=== PATIENT | male | born 1940 | race Caucasian/White ===

== ENCOUNTER 2020-05-08 07:16 | Outpatient (REF) | payer MEDICARE, SELFPAY ==
[2020-05-08 08:05] LABS: MANUAL DIFF FLAG NO
[2020-05-08 08:13] LABS: Basophils Absolute Auto 0.1 X10*3/uL (0.0-0.2); Eosinophils Absolute Auto 0.3 X10*3/uL (0.0-0.4); Eosinophils Percent Auto 3.4 % (0-4); Hemoglobin 18.3 g/dl (14.0-18.0); Imm Gran Abs Auto 0.03 X10*3/uL (0.00-0.03); Imm Gran Pct Auto 0.4 % (0.0-0.4); Lymphocytes Absolute Auto 0.9 X10*3/uL (1.2-4.9); Mean Corpuscular HGB Conc 33.2 g/dl (31.0-36.0); Mean Corpuscular Volume 96.7 fL (80-98); Mean Platelet Volume 10.5 fL (9.4-12.4); Monocytes Percent Auto 12.7 % (2-11); Neutrophils Absolute Auto 5.9 X10*3/uL (2.0-8.3); Neutrophils Percent Auto 71.5 % (45-73); Platelet Count 275 X10*3/uL (160-400); Red Blood Count 5.71 X10*6/uL (4.60-5.80); Red Cell Distribution Width 12.5 % (11.0-16.0); White Blood Count 8.2 X10*3/uL (4.8-10.8)
[2020-05-08 08:17] LABS: Hematocrit 55.2 % (42-52)
[2020-05-08 08:24] LABS: Glucose Urine UA NEG (NEG); Leukocyte Esterase Urine NEG (NEG); Nitrite Urine NEG (NEG); PH 7.5 (5.0-8.0); Urine Blood TRACE (NEG); Urine Ketones NEG (NEG); Urine Protein NEG (NEG-TRACE)
[2020-05-08 08:39] LABS: Estimated Average Glucose 123 mg/dL; Hemoglobin A1c % 5.9 %
[2020-05-08 08:46] LABS: Appearance Urine CLEAR; Color Urine YELLOW
[2020-05-08 08:48] LABS: RBC Urine 0-2 /HPF (0); Squamous Epithelial Cell Urine TRACE /LPF; WBC Urine 0 /HPF (0-4)
[2020-05-08 11:45] LABS: Alanine Aminotransferase 30 U/L (0-40); Albumin Level 4.6 g/dL (3.5-5.0); Alkaline Phosphatase 78 U/L (39-117); Anion Gap 17 (12-20); Aspartate Amino Transferase 30 U/L (5-37); Bilirubin Total 2.6 mg/dL (0.0-1.0); Blood Urea Nitrogen 16 mg/dL (9-16); Calcium 9.8 mg/dL (8.4-10.2); Carbon Dioxide 30 mmol/L (22-29); Chloride 99 mmol/L (96-108); Cholesterol 128 mg/dL; Estimated Glomerular Filt Rate > 60; Glucose Fasting 118 mg/dL (60-99); HDL Cholesterol 45 mg/dL; LDL Cholesterol Calculated 69 mg/dl; Potassium 4.1 mmol/l (3.3-5.1); Prostate Specific Antigen 8.73 ng/mL (<0.05-4.0); Sodium 142 mmol/L (135-145); Total Protein 7.6 g/dL (6.5-8.0); Triglycerides 73 mg/dL
== END 2020-05-08 07:17 | disposition home or self-care (01) ==
LOC: HO.LAB 07:16
PROVIDERS: Visit Provider Internal Medicine Interventional Cardiology
DX: Z12.5 Encounter for screening for malignant neoplasm of prostate (principal); I10 Essential (primary) hypertension; D75.1 Secondary polycythemia; E11.9 Type 2 diabetes mellitus without complications; E78.00 Pure hypercholesterolemia, unspecified
CPT/HCPCS: 36415; 80053; 80061; 81001; 81003; 83036; 84153; 85025

== ENCOUNTER 2024-11-23 08:37 | Outpatient (AMB) | payer BC, MEDICAID, SELFPAY ==
--- NOTE | 2024-11-23 08:43 | MHC.PC.OV ---
Vital Signs 11/23/24 09:02 11/23/24 09:07 Height 5 ft 5 in Weight 142 lb BMI 23.6 BP 162/64 H 168/56 H Blood Pressure Location Lt brachial Lt brachial Position Sitting Sitting Respiration 14 Pulse 71 Pulse Source Pulse Oximeter Pulse Oximetry (%) 100 Oxygen Delivery Method Room Air Intake Visit Reasons: Est. Care / From Dr. Hubbard Intake Note: New patient visit. Allergies lactose Allergy (Unknown, Uncoded 11/23/24 08:50) loose stools Tobacco use date assessed: 11/23/24 Fall risk assessment: No Falls in past year Last assessed Fall Risk: 11/23/24 Dental Screening Dental Screen Date: 11/23/24 Did you have a dental visit in the last 12 months?: Yes Did you have a dental problem in the last 6 months where you did not have access to dental care?: No Was dental information given to patient?: Patient has dentist HPI HPI Comments History of Present Illness Details 84 year old male with a past medical history of CAD, STEMI x2 ABEBE to RCA 2023, htn, hld, prediabetes, gilberts, bph, presenting to establish care CAD: On coreg, brilinta, crestor, amlodipine, ASA. Follows with cardiology, Dr Willis. Will come off the brilinta soon. Prediabetes: HbA1C 6.3%. Urologic: Saw urology in the past for elevated PSA. Thinking about coming off finasteride. ROS CONSTITUTIONAL: Denies weight loss, fever and chills. HEENT: Denies changes in vision and hearing. RESPIRATORY: Denies SOB and cough. CV: Denies palpitations and CP GI: Denies abdominal pain, nausea, vomiting and diarrhea. : Denies dysuria and urinary frequency. MSK: Denies new myalgia and joint pain. SKIN: Denies rash and pruritus. NEUROLOGICAL: Denies headache PSYCHIATRIC: Denies recent changes in mood. PHYSICAL EXAM: GENERAL: Alert and oriented x 3. NAD EYES: EOMI. Anicteric. HENT: Moist mucous membranes. No scleral icterus. No cervical lymphadenopathy. LUNGS: Clear to auscultation bilaterally. CARDIOVASCULAR: Regular rate and rhythm. No murmur. No JVD. ABDOMEN: Soft, non-tender +bs EXTREMITIES: No edema. Non-tender. SKIN: No rashes or lesions. Warm. NEUROLOGIC: No focal neurological deficits. CN II-XII grossly intact PSYCHIATRIC: Cooperative. Appropriate mood and affect [facility] Surgical History H/O colonoscopy H/O hemorrhoidectomy H/O inguinal hernia repair Family History Mother Congestive heart failure Carotid artery disease Diabetes Brother Cancer of breast Sister Cancer of ovary Social History Housing: House (Lives home alone) Alcohol intake: current Patient Tobacco Use Status: Never used Tobacco e-Cigarette/Vaping Use: Never Used Second Hand Smoke Exposure: No service: Yes Current occupational status: retired Current occupational exposures/hazards: No Cognitive needs: No Hearing needs: Yes (some difficulty hearing) Vision needs: Yes (reading glasses) Questionnaire AUDIT C Alcohol Use Questionnaire (AUDIT-C) 1. How often do you have a drink containing alcohol?: Monthly or less 2. How many drinks containing alcohol do you have on a typical day when you are drinking?: 1 or 2 3. How often do you have six or more drinks on one occasion?: Never Total Score: 1 Physical exam (Primary Care) Vital Signs: Last Vital Signs Pulse 71 11/23/24 09:02 Resp 14 11/23/24 09:02 BP 168/56 H 11/23/24 09:07 Pulse Ox 100 11/23/24 09:02 Oxygen Delivery Method Room Air 11/23/24 09:02 BMI result Body Mass Index 23.6 Tobacco/Smoking Status: Tobacco use Status Tobacco use date assessed 11/23/24 11/23/24 08:57 Patient Tobacco Use Status Never used Tobacco 11/23/24 08:57 e-Cigarette/Vaping Use Never Used 11/23/24 08:57 Coding Level of Care Code New Pt Level 4 (91513) Complex EM visit Add On G2211 Diagnoses BPH with elevated PSA N40.0; R97.20 NSTEMI (non-ST elevated myocardial infarction) I21.4 Coronary artery disease involving [place] coronary artery without angina pectoris, unspecified whether [place] or transplanted heart I25.10 Coronary Disease-Associated Artery/Lesion type: [place] artery [place] vs. transplanted heart: unspecified whether [place] or transplanted heart Associated angina: without angina Assessment & Plan Assessment & Plan (1) BPH with elevated PSA: Code(s): N40.0 - Benign prostatic hyperplasia without lower urinary tract symptoms; R97.20 - Elevated prostate specific antigen [PSA] Category: Medical (2) NSTEMI (non-ST elevated myocardial infarction): Code(s): I21.4 - Non-ST elevation (NSTEMI) myocardial infarction Category: Medical (3) CAD (coronary artery disease): Code(s): I25.10 - Atherosclerotic heart disease of [place] coronary artery without angina pectoris Category: Medical Qualifiers: Coronary Disease-Associated Artery/Lesion type: [place] artery [place] vs. transplanted heart: unspecified whether [place] or transplanted heart Associated angina: without angina Qualified Code(s): I25.10 - Atherosclerotic heart disease of [place] coronary artery without angina pectoris Plan 84 year old to establish care Past medical, surgical, social & family history reviewed CAD-no angina. BP controlled Elevated psa-monitor Orders: Orders PSA,Total (Free>4and<10) Today I21.4 - Non-ST elevation (NSTEMI) myocardial infarction, I25.10 - Atherosclerotic heart disease of [place] coronary artery without angina pectoris, N40.0 - Benign prostatic hyperplasia without lower urinary tract symptoms, R97.20 - Elevated prostate specific antigen [PSA] Comprehensive Met. Panel Today I21.4 - Non-ST elevation (NSTEMI) myocardial infarction, I25.10 - Atherosclerotic heart disease of [place] coronary artery without angina pectoris, N40.0 - Benign prostatic hyperplasia without lower urinary tract symptoms, R97.20 - Elevated prostate specific antigen [PSA] Complete Blood Count Auto Diff Today I21.4 - Non-ST elevation (NSTEMI) myocardial infarction, I25.10 - Atherosclerotic heart disease of [place] coronary artery without angina pectoris, N40.0 - Benign prostatic hyperplasia without lower urinary tract symptoms, R97.20 - Elevated prostate specific antigen [PSA] Hemoglobin A1c Today I21.4 - Non-ST elevation (NSTEMI) myocardial infarction, I25.10 - Atherosclerotic heart disease of [place] coronary artery without angina pectoris, N40.0 - Benign prostatic hyperplasia without lower urinary tract symptoms, R97.20 - Elevated prostate specific antigen [PSA] Lipid Panel Today I21.4 - Non-ST elevation (NSTEMI) myocardial infarction, I25.10 - Atherosclerotic heart disease of [place] coronary artery without angina pectoris, N40.0 - Benign prostatic hyperplasia without lower urinary tract symptoms, R97.20 - Elevated prostate specific antigen [PSA]
--- OUTSIDE RECORDS SUMMARY | 2024-11-23 08:56 | XMS_ITS | Clinical Summary ---
Author Organization [employer] Address [address] [place] [address] Care Team Providers Care Reporting Coordinator Name Role Phone Unavailable Primary Care Provider Unavailabl e Allergies No known active allergies Medications simvastatin (Zocor) 20 MG tablet Take 20 mg by mouth in the morning. 04/19/2023 Active Multiple Vitamin (multivitamin) capsule Active hydroCHLOROthiaz juan (HYDRODiuril) 25 MG tablet Take 25 mg by mouth in the morning. 02/21/2023 Active amLODIPine (Norvasc) 5 MG tablet Take 5 mg by mouth in the morning. 03/18/2023 Active carvedilol (Coreg) 3.125 MG tablet Take 3.125 mg by mouth 2 times daily. 07/21/2023 Active simvastatin (Zocor) 10 MG tablet Take 1 tablet by mouth at bed time. Active aspirin 81 MG EC tablet Take 81 mg by mouth in the morning. Active rosuvastatin (Crestor) 20 MG tablet Take 20 mg by mouth Once per day. Active Brilinta 90 MG tablet Take 90 mg by mouth 2 times daily. Active finasteride (Proscar) 5 MG tablet Take 1 tablet by mouth Once per day. 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 [address] [place] [id number] Zelalem De BDS 09/16/2024 3:00 PM EST Office Visit [facility] [address] [place] [phone] Zelalem De BDS from Last 3 Months Social History Tobacco Use Types Packs/Day Years Used Date Smoking Tobacco: Unknown Tobacco Cessation:Counseling Given: Not Answered Alcohol Use Standard Drinks/Week Comments Never 0 (1 standard drink = 0.6 oz pur e alcohol) Sex and Gender Information Value Date Recorded Sex Assigned at Male 05/13/2022 10:24 AM EDT Legal Sex Male 10:24 AM EDT Gender Identity Female 05/13/2022 10:24 AM EDT Sexual Orientation Straight 05/13/2022 10 :24 AM EDT Last Filed Vital Signs Vital Sign Reading Time Taken Comments Blood Pressure 120/76 03/30/2024 9:23 AM EDT Pulse 62 03/22/2024 10:08 AM EDT Temperature - - Respiratory Rate - - Oxygen Saturation - - Inhaled Oxygen Concentration - - Weight - - Height - - Body Mass Index - - Plan of Treatment Health Maintenance Due Date Last Done Comments Depression Screening 1938 Lipid Panel 1938 SDOH Screening 1938 Alcohol/Substance Use Screening 1950 Pneumococcal Vaccine: 50+ Years (1 of 1 - PCV) 1988 Zoster Vaccines (1 of 2) 1988 RSV Patients and Patients Aged 60 years or older (1 - 1-dose 75+ series) 2013 Dental Prophylaxis 05/09/2016 11/07/2015, 1 07/30/2013, 05/21/2013, Additional history exists Dental Oral Exam 06/15/2021 12/13/2020, 02/2013, 11/16/2012, Additional history exists Dental X-Ray: Bitewings 12/14/2021 12/13/2020, 05/30 Dental X-Ray: Full Mouth 12/15/2023 12/13/2020 COVID-19 Vaccine ( season) 2024 06/13/2022, 11/29/2021, 06/05/2021, Additional history exists Tobacco Screening 09/20/2025 09/20/2024 DTaP/Tdap/Td Vaccines (2 - Td or Tdap) 02/21/2031 02/21/2021 Influenza Vaccine Completed 05/15/2024, , 04/18/2022, Additional history exists HIB Vaccines Aged Out No longer eligi ble based on patient's age to complete this topic HPV Vaccines Aged Out No longer eligi ble based on patient's age to complete this topic Hepatitis A Vaccines Aged Out No long er eligible based on patient's age to complete this topic Hepatitis B Vaccines Aged Out No long er eligible based on patient's age to complete this topic IPV Vaccines Aged Out No longer eligi ble based on patient's age to complete this topic Meningococcal Vaccine Aged Out No [place] gladys eligible based on patient's age to complete this topic RSV under 20 months Aged Out No longe r eligible based on patient's age to complete this topic Rotavirus Vaccines Aged Out No longer eligible based on patient's age to complete this topic Procedures Procedure Name Priority Date/Time Associated Diagnosis Comments CASE PRESENTATION, DETAILED AND EXTENSIVE TREATMENT PLANNING Routine 09/20/2024 8:30 AM EDT ADJUST PARTIAL DENTURE - MAXILLARY Routine 09/20/2024 8:30 AM EDT CASE PRESENTATION, DETAILED AND EXTENSIVE TREATMENT PLANNING Routine 09/16/2024 3:00 PM EST NO CHARGE VISIT Routine 09/16/2024 3:00 PM EST INTRAORAL - COMPLETE SERIES OF RADIOGRAPHIC IMAGES Routine 12/13/2020 12:00 AM EDT PERIODIC ORAL EVALUATION - ESTABLISHED PATIENT Routine 12/13/2020 12:00 AM EDT PROPHYLAXIS - ADULT Routine 11/07/2015 1 2:00 AM EDT from Last 3 Months or Most Recently Relevant to Health Maintenance Insurance DENTAL - HSN FULL (MEDICAID)
[2024-11-23 09:02] VITALS: BP 162/64; PULSE 71; RESP 14; O2SAT 100; BMI 23.6
[2024-11-23 09:07] VITALS: BP 168/56
== END 2024-11-23 09:33 | disposition home or self-care (01) ==
LOC: HO.HMCFM 08:37
PROVIDERS: PCP Internal Medicine; Visit Provider Internal Medicine
DX: N40.0 Benign prostatic hyperplasia without lower urinary tract symptoms (principal); R97.20 Elevated prostate specific antigen [PSA]; I25.2 Old myocardial infarction; I25.10 Atherosclerotic heart disease of native coronary artery without angina pectoris

== ENCOUNTER → 2024-11-23 08:37 | Outpatient (BNVA) | payer BC, MEDICAID, SELFPAY | PROVIDERS: PCP Internal Medicine; Visit Provider Internal Medicine ==

== ENCOUNTER 2025-06-17 11:56 | Outpatient (REF) | payer BC, MEDICAID, SELFPAY ==
[2025-06-17 14:16] LABS: MANUAL DIFF FLAG NO
[2025-06-17 14:22] LABS: Hematocrit 47.6 % (42.0-52.0); Hemoglobin 15.8 g/dl (14.0-18.0); Imm Gran Abs Auto 0.02 X10*3/uL (0.00-0.03); Imm Gran Pct Auto 0.3 % (0.0-0.4); Lymphocytes Absolute Auto 1.2 X10*3/uL (1.2-4.9); Mean Corpuscular HGB Conc 33.2 g/dl (31.0-36.0); Mean Corpuscular Hemoglobin 32.7 pg (27.0-33.0); Mean Corpuscular Volume 98.6 fL (80.0-98.0); NRBC Abs Auto 0.000 X10*3/uL (0.0-0.012); NRBC Pct Auto 0.0 /100WBC (0.0-0.2); Platelet Count 245 X10*3/uL (160-400); Red Blood Count 4.83 X10*6/uL (4.60-5.80); White Blood Count 7.3 X10*3/uL (4.8-10.8)
[2025-06-17 17:26] LABS: Alanine Aminotransferase 29 U/L (0-40); Albumin Level 4.3 g/dL (3.5-5.0); Alkaline Phosphatase 68 U/L (39-117); Anion Gap 12 (12-20); Aspartate Amino Transferase 40 U/L (5-37); Blood Urea Nitrogen 17 mg/dL (9-16); Calcium 9.1 mg/dL (8.4-10.2); Carbon Dioxide 28 mmol/L (22-29); Chloride 105 mmol/L (96-108); Cholesterol 121 mg/dL (<200); Estimated Glomerular Filt Rate > 60; HDL Cholesterol 51 mg/dL (>40); Potassium 3.7 mmol/L (3.3-5.1); Sodium 141 mmol/L (135-145); Total Protein 6.8 g/dL (6.5-8.0); Triglycerides 52 mg/dL (<150)
[2025-06-17 19:20] LABS: PSA,Total (Free>4and<10) 14.40 ng/mL (0.00-4.00)
== END 2025-06-17 11:57 | disposition home or self-care (01) ==
LOC: HO.WFDLDS 11:56
PROVIDERS: Visit Provider Internal Medicine
DX: Z12.5 Encounter for screening for malignant neoplasm of prostate (principal); Z13.1 Encounter for screening for diabetes mellitus; I25.10 Atherosclerotic heart disease of native coronary artery without angina pectoris; I21.4 Non-ST elevation (NSTEMI) myocardial infarction; N40.0 Benign prostatic hyperplasia without lower urinary tract symptoms; R97.20 Elevated prostate specific antigen [PSA]
CPT/HCPCS: 36415; 80053; 80061; 83036; 84153; 85025

== ENCOUNTER 2025-06-28 13:04 | Outpatient (AMB) | payer BC, MEDICAID, SELFPAY ==
--- NOTE | 2025-06-28 13:06 | A.OFFPC_ITS ---
Vital Signs 06/28/25 13:12 06/28/25 13:20 Height 5 ft 5 in Weight 147 lb BMI 24.5 BP 158/70 H 160/74 H Blood Pressure Location Rt brachial Rt brachial Position Sitting Sitting Respiration 14 Pulse 92 Pulse Source Pulse Oximeter Pulse Oximetry (%) 98 Oxygen Delivery Method Room Air Intake Visit Reasons: AWV Intake Note: Annual wellness Literature Professor Required: No Allergies lactose Allergy (Unknown, Uncoded 06/28/25 13:12) loose stools Tobacco use date assessed: 06/28/25 Fall risk assessment: 1 Fall in past year Last assessed Fall Risk: 06/28/25 Dental Screening Dental Screen Date: 06/28/25 Did you have a dental visit in the last 12 months?: Yes Did you have a dental problem in the last 6 months where you did not have access to dental care?: No Was dental information given to patient?: Patient has dentist HPI HPI Comments History of Present Illness Details 84 year old male with a past medical his tory of CAD, STEMI x2 ABEBE to RCA 2023, htn, hld, prediabetes, gilberts, bph, presenting for CPE CAD: On coreg, crestor, amlodipine, ASA. Follows with cardiology, Dr Willis. Denies chest pain, shortness of breath Prediabetes: HbA1C improving to 5.9% from 6.3% Urologic: Saw urology in the past for elevated PSA. Saw Dr Anna. Came off the finasteride. Elevated PSA with recent labs. Declines further referral. Sees [facility] ROS CONSTITUTIONAL: Denies weight loss, fever and chills. HEENT: Denies changes in vision and hearing. RESPIRATORY: Denies SOB and cough. CV: Denies palpitations and CP GI: Denies abdominal pain, nausea, vomiting and diarrhea. : Denies dysuria and urinary frequency. MSK: Denies new myalgia and joint pain. SKIN: Denies rash and pruritus. NEUROLOGICAL: Denies headache PSYCHIATRIC: Denies recent changes in mood. PHYSICAL EXAM: GENERAL: Alert and oriented x 3. NAD EYES: EOMI. Anicteric. HENT: Moist mucous membranes. No scleral icterus. No cervical lymphadenopathy. LUNGS: Clear to auscultation bilaterally. CARDIOVASCULAR: Regular rate and rhythm. No murmur. No JVD. ABDOMEN: Soft, non-tender +bs EXTREMITIES: No edema. Non-tender. SKIN: No rashes or lesions. Warm. NEUROLOGIC: No focal neurological deficits. CN II-XII grossly intact PSYCHIATRIC: Cooperative. Appropriate mood and affect [facility] Surgical History H/O colonoscopy H/O hemorrhoidectomy H/O inguinal hernia repair Family History Mother Congestive heart failure Carotid artery disease Diabetes Brother Cancer of breast Sister Cancer of ovary Social History Housing: House (Lives home alone) Alcohol intake: current Patient Tobacco Use Status: Never used Tobacco e-Cigarette/Vaping Use: Never Used Second Hand Smoke Exposure: No service: Yes Current occupational status: retired Current occupational exposures/hazards: No Cognitive needs: No Hearing needs: Yes (some difficulty hearing) Vision needs: Yes (reading glasses) Questionnaire AUDIT C Alcohol Use Questionnaire (AUDIT-C) 1. How often do you have a drink containing alcohol?: Monthly or less 2. How many drinks containing alcohol do you have on a typical day when you are drinking?: 1 or 2 3. How often do you have six or more drinks on one occasion?: Never Total Score: 1 Physical exam (Primary Care) Vital Signs: Last Vital Signs Pulse 92 06/28/25 13:12 Resp 14 06/28/25 13:12 BP 160/74 H 06/28/25 13:20 Pulse Ox 98 06/28/25 13:12 Oxygen Delivery Method Room Air 06/28/25 13:12 BMI result Body Mass Index 24.5 Tobacco/Smoking Status: Tobacco use Status Tobacco use date assessed 06/28/25 06/28/25 13:19 Patient Tobacco Use Status Never used Tobacco 06/28/25 13:06 e-Cigarette/Vaping Use Never Used 06/28/25 13:06 Coding Level of Care Code Est Pt Prev Care >65y(89824) Diagnoses Physical exam Z00.00 Coronary artery disease involving [place] coronary artery without angina pectori s, unspecified whether [place] or transplanted heart I25.10 Coronary Disease-Associated Artery/Lesion type: [place] artery [place] vs. transplanted heart: unspecified whether [place] or transplanted heart Associated angina: without angina NSTEMI (non-ST elevated myocardial infarction) I21.4 Prediabetes R73.03 BPH with elevated PSA N40.0; R97.20 Assessment & Plan Assessment & Plan (1) Physical exam: Code(s): Z00.00 - Encounter for general adult medical examination without abnormal findings (2) CAD (coronary artery disease): Code(s): I25.10 - Atherosclerotic heart disease of [place] coronary artery without angina pectoris Category: Medical Qualifiers: Coronary Disease-Associated Artery/Lesion type: [place] artery [place] vs. transplanted heart: unspecified whether [place] or transplanted heart Associated angina: without angina Qualified Code(s): I25.10 - Atherosclerotic heart disease of [place] coronary artery without angina pectoris (3) NSTEMI (non-ST elevated myocardial infarction): Code(s): I21.4 - Non-ST elevation (NSTEMI) myocardial infarction Category: Medical (4) Prediabetes: Code(s): R73.03 - Prediabetes Category: Medical (5) BPH with elevated PSA: Code(s): N40.0 - Benign prostatic hyperplasia without lower urinary tract symptoms; R97.20 - Elevated prostate specific antigen [PSA] Category: Medical Plan CPE Interval history reviewed CV-hypertension adequately controlled on medication. continue currrent medications Elevated PSA-declines further work up due to age Labs ordered Orders: Orders Comprehensive Met. Panel 06/28/25 I21.4 - Non-ST elevation (NSTEMI) myocardial infarction, I25.10 - Atherosclerotic heart disease of [place] coronary artery without angina pectoris Lipid Panel 06/28/25 I21.4 - Non-ST elevation (NSTEMI) myocardial infarction, I25.10 - Atherosclerotic heart disease of [place] coronary artery without angina pectoris Prostate Specific Antigen 06/28/25 I21.4 - Non-ST elevation (NSTEMI) myocardial infarction, I25.10 - Atherosclerotic heart disease of [place] coronary artery without angina pectoris Hemoglobin A1c 06/28/25 R73.03 - Prediabetes Medications: New amlodipine 10 mg PO DAILY 90 tabs 3RF rosuvastatin 20 mg PO BEDTIME 90 tabs 3RF Changed From carvedilol 3.125 mg PO BID To carvedilol for refills 3.125 mg PO BID 90 tabs 3RF
[2025-06-28 13:12] VITALS: BP 158/70; PULSE 92; RESP 14; O2SAT 98; BMI 24.5
[2025-06-28 13:20] VITALS: BP 160/74
--- OUTSIDE RECORDS SUMMARY | 2025-06-28 17:04 | XMS_ITS ---
Author Name [facility] Organization Unknown Health Concerns ID Update Date Source Alert Text 12/15/2021 [id number] COVID-19 RNA Po sitive: This patient had positive RNA testing for SARS-CoV-2 on 2021-12-11 15:00:00 as reported by the [facility].
--- OUTSIDE RECORDS SUMMARY | 2025-06-28 17:04 | XMS_ITS | Clinical Summary ---
Author Organization [employer] Address [address] [facility] [facility] [address] [place] [address] Care Team Providers Care Currency Machine Operator Name Role Phone Unavailable Primary Care Provider [...] by mouth Once per day. 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 Encounters Date Type Department Care Team Description 04/26/2025 9:00 AM EDT Office Visit [facility] [address] [place] [phone] Maria Luisa Caraballo from Last 3 Months Social History Tobacco [...] Sign Reading Time Taken Comments Blood Pressure 150/70 04/26/2025 9:12 AM EDT Pulse 67 04/26/2025 9:12 AM EDT Temperature - - Respiratory Rate - - Oxygen Saturation - - Inhaled Oxygen Concentration - - Weight - - Height - - Body Mass Index - - Plan of Treatment Upcoming Encounters Date Type Department Care Team (Late st Contact Info) Description 10/28/2025 10:15 AM EDT Office Visit [facility] [address] [place] [address] Soila, Alena [address] [place] [address] Health Maintenance Due Date Last Done Comments Depression Screening 1938 Lipid Panel 1938 SDOH Screening 1938 Alcohol/Substance Use Screening 1950 Pneumococcal Vaccine: 50+ Years (1 of 1 - PCV) 1988 Zoster Vaccines (1 of 2) 1988 Dental X-Ray: Bitewings 12/14/2021 12/13/2020, 05/30 Dental X-Ray: Full Mouth 12/15/2023 12/13/2020 COVID-19 Vaccine ( season) 2025 06/13/2022, 11/29/2021, 06/05/2021, Additional history exists Dental Oral Exam 10/26/2025 04/26/2025, 08/2020, 05/21/2013, Additional history exists Dental Prophylaxis 10/26/2025 04/26/2025, 0 11/07/2015, 05/30/2014, Additional history exists Tobacco Screening 04/26/2026 04/26/2025 DTaP/Tdap/Td Vaccines (2 - Td or Tdap) 02/21/2031 02/21/2021 RSV Patients and Patients Aged 60 years or older Completed 07/02/2023 Influenza Vaccine Completed 03/23/2025, , 04/18/2022, Additional history exists HIB Vaccines [...] patient's age to complete this topic Meningococcal B Vaccine Aged Out No l onger eligible based on patient's age to complete [...] PRESENTATION, DETAILED AND EXTENSIVE TREATMENT PLANNING Routine 04/26/2025 9:00 AM EDT INTRAORAL - PERIAPICAL EACH ADDITIONAL RADIOGRAPHIC IMAGE Routine 04/26/2025 9:00 AM EDT INTRAORAL - PERIAPICAL EACH ADDITIONAL RADIOGRAPHIC IMAGE Routine 04/26/2025 9:00 AM EDT INTRAORAL - PERIAPICAL FIRST RADIOGRAPHIC IMAGE Routine 04/26/2025 9:00 AM EDT PROPHYLAXIS - ADULT Routine 04/26/2025 9 :00 AM EDT PERIODIC ORAL EVALUATION - ESTABLISHED PATIENT Routine 04/26/2025 9:00 AM EDT INTRAORAL - COMPLETE SERIES OF RADIOGRAPHIC IMAGES Routine 12/13/2020 12:00 AM EDT from Last 3 Months or Most Recently Relevant to Health Maintenance Insurance DENTAL - HSN FULL (MEDICAID)
== END 2025-06-28 13:45 | disposition home or self-care (01) ==
LOC: HO.HMCFM 13:04
PROVIDERS: PCP Internal Medicine; Visit Provider Internal Medicine
DX: Z00.00 Encounter for general adult medical examination without abnormal findings (principal); R73.03 Prediabetes; N40.0 Benign prostatic hyperplasia without lower urinary tract symptoms; R97.20 Elevated prostate specific antigen [PSA]; I25.2 Old myocardial infarction